=== PATIENT | female | born 1990 | race Caucasian/White ===

== ENCOUNTER → 2020-12-17 07:44 | Outpatient (CLI) | payer SELFPAY ==
[2020-12-17 08:07] LABS: Add Manual Diff / Slide Review NO; Basophils Absolute Auto 100 /uL (0-100); Basophils Percent Auto 0.8 % (0-2); Eosinophils Absolute Auto 100 /uL (0-450); Eosinophils Percent Auto 1.2 % (2-4); Hematocrit 38.9 % (36-46); Hemoglobin 13.2 g/dL (12.0-16.0); Lymphocytes Absolute Auto 3200 /uL (1100-4500); Lymphocytes Percent Auto 38.6 % (25-40); Mean Corpuscular HGB Conc 33.9 % (30-36); Mean Corpuscular Hemoglobin 31.6 PG (26-34); Monocytes Absolute Auto 700 /uL (0-900); Monocytes Percent Auto 8.6 % (3-14); Neutrophils Absolute Auto 4200 /uL (1500-7000); Neutrophils Percent Auto 50.8 % (50-75); Platelet Count 368 X10^3/uL (150-400); Red Blood Cell Count 4.18 X10^6/uL (4.0-5.2); Red Cell Distribution Width 12.7 % (11.6-14.8); White Blood Cell Count 8.3 X10^3/uL (4.5-11.0)
[2020-12-17 08:42] LABS: Appearance Urine UA CLEAR; Bilirubin Urine UA NEGATIVE (NEGATIVE); Color Urine UA YELLOW; Glucose Urine UA TRACE g/dL (Negative); Ketones Urine UA NEGATIVE (NEGATIVE); Leukocyte Esterase Urine UA 2+ (NEGATIVE); Nitrite Urine UA NEGATIVE (Negative); Occult Blood Urine UA 1+ (Negative); Protein Urine UA NEGATIVE (Negative); Urobilinogen Urine UA 0.2 E.U./dL (0.2)
[2020-12-17 09:10] LABS: Alanine Aminotransferase 23 IU/L (<35); Albumin Globulin Ratio 1.6 (1.0-2.8); Alkaline Phosphatase 41 U/L (38-126); Aspartate Aminotransferase 27 IU/L (14-36); BUN Creatinine Ratio 20.9 (6-22); Bilirubin Total 0.8 mg/dL (0.2-1.3); Blood Urea Nitrogen 14 mg/dL (7-17); Carbon Dioxide 29 mmol/L (22-32); Chloride 103 mmol/L (98-107); Cholesterol 120 mg/dL (140-199); Estimated Glomerular Filt Rate > 60.0 mL/min (>60); Globulin 2.5 g/dL (1.7-4.1); Glucose 89 mg/dL (70-100); HDL Cholesterol 68 mg/dL (40-60); HEMOLYSIS < 15 (0-50); LDL Cholesterol Calculated 25 mg/dL (<100); Potassium 4.6 mmol/L (3.4-5.1); Sodium 135 mmol/L (137-145); Total Protein 6.5 g/dL (6.3-8.2); Triglycerides 136 mg/dL (35-150)
[2020-12-17 09:15] LABS: pH Urine UA 6.5 (4.5-8.0)
[2020-12-17 09:36] LABS: TSH w/ Reflex to FT4 2.16 uIU/mL (0.47-4.68)
[2020-12-17 10:00] LABS: Bacteria Urine Many (>30); Culture Indicated Urine Specimen Cultured; RBC Urine 0-1/HPF (0-5/HPF); Squamous Epithelial Cell Urine 1-5 /HPF (0-5/HPF); WBC Urine 10-30/HPF (0-5/HPF)
== END ==
PROVIDERS: Family Provider Internal Medicine; PCP Registered Nurse; Referring Provider Registered Nurse; Visit Provider Registered Nurse
DX: F41.8 Other specified anxiety disorders (principal); Z30.41 Encounter for surveillance of contraceptive pills; Z00.00 Encounter for general adult medical examination without abnormal findings; Z82.49 Family history of ischemic heart disease and other diseases of the circulatory system
CPT/HCPCS: 36415; 80053; 80061; 81003; 81015; 84443; 85025; 87077; 87086

== ENCOUNTER → 2023-11-05 10:08 | Outpatient (CLI) | payer OTHER, SELFPAY ==
[2023-11-05 12:09] LABS: HCG Quantitative /Beta subunit 116.9 mIU/mL
== END ==
PROVIDERS: Family Provider Internal Medicine; PCP Registered Nurse Diabetes Educator; Referring Provider Obstetrics & Gynecology; Visit Provider Obstetrics & Gynecology
DX: N91.2 Amenorrhea, unspecified (principal)
CPT/HCPCS: 36415; 84702

== ENCOUNTER → 2023-11-07 08:25 | Outpatient (CLI) | payer OTHER, SELFPAY ==
[2023-11-07 09:48] LABS: HCG Quantitative /Beta subunit 254.7 mIU/mL
== END ==
PROVIDERS: Family Provider Internal Medicine; PCP Registered Nurse Diabetes Educator; Referring Provider Obstetrics & Gynecology; Visit Provider Obstetrics & Gynecology
DX: N91.2 Amenorrhea, unspecified (principal)
CPT/HCPCS: 36415; 84702

== ENCOUNTER → 2023-12-16 12:26 | Outpatient (CLI) | payer OTHER, SELFPAY ==
[2023-12-16 13:12] LABS: Add Manual Diff / Slide Review NO; Basophils Absolute Auto 100 /uL (0-100); Basophils Percent Auto 0.6 % (0-2); Eosinophils Absolute Auto 100 /uL (0-450); Eosinophils Percent Auto 0.7 % (2-4); Hematocrit 37.4 % (36-46); Hemoglobin 12.7 g/dL (12.0-16.0); Lymphocytes Absolute Auto 3600 /uL (1100-4500); Lymphocytes Percent Auto 29.5 % (25-40); Mean Corpuscular HGB Conc 33.9 % (30-36); Mean Corpuscular Hemoglobin 30.5 PG (26-34); Mean Corpuscular Volume 89.8 fL (80-100); Monocytes Absolute Auto 900 /uL (0-900); Neutrophils Absolute Auto 7600 /uL (1500-7000); Neutrophils Percent Auto 62.2 % (50-75); Platelet Count 399 X10^3/uL (150-400); Red Blood Cell Count 4.16 X10^6/uL (4.0-5.2); Red Cell Distribution Width 13.2 % (11.6-14.8); White Blood Cell Count 12.2 X10^3/uL (4.5-11.0)
[2023-12-17 07:34] LABS: RPR Screen Non Reactive (Non Reactive)
[2023-12-17 10:30] LABS: Varicella IgG Antibody 802 index (Immune >165)
[2023-12-17 16:40] LABS: Hepatitis B Surface Antigen NEGATIVE s/c (NEGATIVE); Rubella Antibody IgG 54.8 IU/mL (>15)
[2023-12-17 16:55] LABS: HIV 1 & 2 Ab/Ag 4th Gen Combo NEGATIVE (NEGATIVE); Hep C Virus Ab w/Reflex Quant NEGATIVE s/c (NEGATIVE)
== END ==
PROVIDERS: Family Provider Internal Medicine; PCP Registered Nurse Diabetes Educator; Referring Provider Obstetrics & Gynecology; Visit Provider Obstetrics & Gynecology
DX: Z34.00 Encounter for supervision of normal first pregnancy, unspecified trimester (principal)
CPT/HCPCS: 36415; 80055; 86787; 86803; 86850; 86900; 86901; 87086; 87389

== ENCOUNTER → 2023-12-22 11:55 | Outpatient (CLI) | payer OTHER, SELFPAY | PROVIDERS: Family Provider Internal Medicine; PCP Registered Nurse Diabetes Educator; Referring Provider Obstetrics & Gynecology; Visit Provider Obstetrics & Gynecology | DX: Z34.01 Encounter for supervision of normal first pregnancy, first trimester (principal) | CPT/HCPCS: 36415 ==

== ENCOUNTER → 2024-02-22 16:55 | Outpatient (CLI) | payer OTHER, SELFPAY ==
[2024-02-24 21:10] LABS: AFP Value 42.5 ng/mL (.); Gest Age on Col Date 19.1 weeks (.); Insulin Dep Diabetes No (.); OSBR Risk 1IN 10000 (.); Results Report (.); Test Results *Screen Negative* (.)
[2024-02-25 07:22] LABS: PDF SCANNED
== END ==
PROVIDERS: Family Provider Internal Medicine; PCP Registered Nurse Diabetes Educator; Referring Provider Obstetrics & Gynecology; Visit Provider Obstetrics & Gynecology
DX: Z34.02 Encounter for supervision of normal first pregnancy, second trimester (principal); Z3A.16 16 weeks gestation of pregnancy
CPT/HCPCS: 36415; 82105

== ENCOUNTER → 2024-03-01 15:21 | Outpatient (CLI) | payer OTHER, SELFPAY ==
--- NOTE | 2024-03-01 15:22 | DI.US.S_ITS ---
PROCEDURE: US OB >= 14 WEEKS FETUS INDICATIONS: 20 Week Anatomy Scan OUTSIDE/PRIOR DATING DATA: Last menstrual period (LMP): 10/06/2023. LMP-based estimated date of delivery (CORIN): 07/17/2024. First dating scan (date and location): 12/01/2023. Estimated date of delivery (CORIN) from first dating scan: 07/14/2024. The calculations are made using the clinical CORIN of 07/17/2024. TECHNIQUE: Real-time scanning was performed of the fetus, with image documentation and biometric measurements. Endovaginal scanning: Not performed. COMPARISON: [facility], , OB >= 14 WEEKS FETUS, 01/25/2024, 16:29. FINDINGS: General: A single living intrauterine gestation is present. Presentation: Vertex. Placenta: Placental position is posterior, without previa. Amniotic fluid index: 13.1 cm, normal range is 5-24 cm. Single deepest vertical pocket is 3.9 cm. heart rate: 143 beats per minute. Maternal cervical canal: 3 cm long. Normal lower limit is 2.5 cm. Closed. biometrics: Biparietal diameter: 5.1 cm, 21 weeks 3 days Head circumference: 18.6 cm, 20 weeks 6 days Abdominal circumference: 15.6 cm, 20 weeks 5 days Femur length: 3.2 cm, 19 weeks 6 days Clinically estimated gestational age: 20 weeks 2 days Composite gestational age from present scan: 20 weeks 5 days Estimated weight and percentile: 355 g, 55th percentile Anatomic survey: Neuro: Ventricles are non-dilated at less than 10 mm. Cisterna magna is normal at 3-11 mm. Cerebellum is normal in size and morphology. Nuchal skin fold: Normal at less than 6 mm between 14-21 weeks gestational age. Face: Nose and lips, facial profile are normal. Spine: No evidence for spina bifida. Heart: 4-chambered heart is present, with normal ventricular outflow tracts. Left ventricle intracardiac echogenic focus. Diaphragm: Diaphragm is intact. Stomach: Left-sided stomach is present. Kidneys: No hydronephrosis. Normal is less than 5 mm in 2nd trimester, less than 7 mm in 3rd trimester. Cord: 3-vessel cord has orthotopic insertion. Bladder: Normal in size. Extremities: All 4 extremities identified. IMPRESSION: 1. Webb living intrauterine at 20 weeks 5 days based on today's ultrasound. This is concordant with the prior dating. Fetus is in the 55th percentile for weight. 2. Normal placenta and amniotic fluid. 3. Left ventricle echogenic focus. Soft marker for aneuploidy. However, in the absence of other findings this is likely clinically insignificant. Consider screening for aneuploidy with cell free DNA. Otherwise normal anatomic survey. We strive to produce accurate, complete, and clear reports of imaging services. To assist us in improving patient care, this report was composed using standard report templates and voice recognition software. Therefore, it may contain abnormal punctuation, insertions and/or omissions. Occasional wrong-word or sound-alike substitutions may occur. Though we review the report and make efforts to correct it, we do recommend that the report be read carefully in proper context to recognize any text inaccuracies. Dictated by: Yobani Buckley M.D. on 03/02/2024 at 8:46 Approved by: Yobani Buckley M.D. on 03/02/2024 at 8:53
== END ==
LOC: US 15:22
PROVIDERS: Family Provider Internal Medicine; PCP Registered Nurse Diabetes Educator; Referring Provider Obstetrics & Gynecology; Visit Provider Obstetrics & Gynecology
DX: Z34.02 Encounter for supervision of normal first pregnancy, second trimester (principal); Z3A.20 20 weeks gestation of pregnancy
CPT/HCPCS: 76811

== ENCOUNTER → 2024-04-20 07:29 | Outpatient (CLI) | payer OTHER, SELFPAY ==
[2024-04-20 09:46] LABS: Hematocrit 35.6 % (36-46); Hemoglobin 11.9 g/dL (12.0-16.0)
[2024-04-20 10:15] LABS: GTT (PREG) 1 Hour PP 50gm Dose 104 mg/dL (76-139)
== END ==
PROVIDERS: Family Provider Internal Medicine; PCP Registered Nurse Diabetes Educator; Referring Provider Obstetrics & Gynecology; Visit Provider Obstetrics & Gynecology
DX: Z34.02 Encounter for supervision of normal first pregnancy, second trimester (principal); Z3A.27 27 weeks gestation of pregnancy
CPT/HCPCS: 82950; 85014; 85018

== ENCOUNTER → 2024-05-03 14:33 | Outpatient (CLI) | payer OTHER, SELFPAY ==
[2024-05-03 15:57] LABS: Add Manual Diff / Slide Review NO; Basophils Absolute Auto 0 /uL (0-100); Basophils Percent Auto 0.3 % (0-2); Eosinophils Absolute Auto 100 /uL (0-450); Eosinophils Percent Auto 0.9 % (2-4); Hematocrit 34.9 % (36-46); Hemoglobin 11.8 g/dL (12.0-16.0); Lymphocytes Absolute Auto 3300 /uL (1100-4500); Lymphocytes Percent Auto 20.4 % (25-40); Mean Corpuscular HGB Conc 33.9 % (30-36); Mean Corpuscular Volume 94.4 fL (80-100); Monocytes Absolute Auto 1700 /uL (0-900); Monocytes Percent Auto 10.3 % (3-14); Neutrophils Absolute Auto 11000 /uL (1500-7000); Neutrophils Percent Auto 68.1 % (50-75); Platelet Count 345 X10^3/uL (150-400); Red Blood Cell Count 3.69 X10^6/uL (4.0-5.2); Red Cell Distribution Width 13.1 % (11.6-14.8); White Blood Cell Count 16.1 X10^3/uL (4.5-11.0)
[2024-05-03 16:39] LABS: Alanine Aminotransferase 19 IU/L (<35); Albumin 3.3 g/dL (3.5-5.0); Albumin Globulin Ratio 1.4 (1.0-2.8); Alkaline Phosphatase 75 U/L (38-126); Aspartate Aminotransferase 26 IU/L (14-36); BUN Creatinine Ratio 23.4 (6-22); Bilirubin Total 0.3 mg/dL (0.2-1.3); Blood Urea Nitrogen 11 mg/dL (7-17); Calcium 8.6 mg/dL (8.4-10.2); Carbon Dioxide 24 mmol/L (22-32); Chloride 108 mmol/L (98-107); Estimated Glomerular Filt Rate > 60 mL/min (>60); Globulin 2.4 g/dL (1.7-4.1); Glucose 82 mg/dL (70-100); HEMOLYSIS < 15 (0-50); Potassium 3.9 mmol/L (3.4-5.1); Sodium 135 mmol/L (137-145); Total Protein 5.7 g/dL (6.3-8.2)
== END ==
PROVIDERS: Family Provider Internal Medicine; PCP Registered Nurse Diabetes Educator; Referring Provider Obstetrics & Gynecology; Visit Provider Obstetrics & Gynecology
DX: O12.00 Gestational edema, unspecified trimester (principal)
CPT/HCPCS: 36415; 80053; 85025

== ENCOUNTER 2024-05-12 15:36 | Emergency (ER) | payer OTHER, SELFPAY ==
[2024-05-12 15:43] VITALS: BP 131/66; PULSE 88; RESP 18; TEMP 37.1; O2SAT 97; BMI 27.7
--- NOTE | 2024-05-12 15:48 | DI.US.S_ITS ---
PROCEDURE: US PERIPH VENOUS LOW EXTREM RT INDICATIONS: right ankle swelling/leg pain, r/o DVT TECHNIQUE: Real-time imaging, as well as color and pulse Doppler interrogation, were performed of the lower extremity deep veins from the inguinal ligament to the popliteal fossa, with documentation of the visualized calf veins. COMPARISON: None. FINDINGS: The common femoral, femoral, popliteal, and the visualized calf veins are normally compressible, and free of intraluminal thrombus. Color and pulse Doppler demonstrate normal phasic intraluminal flow. There is normal augmentation response to distal compression maneuver. IMPRESSION: No findings of lower extremity deep venous thrombosis. Dictated by: Jose A Stevens M.D. on 05/12/2024 at 16:56 Approved by: Jose A Stevens M.D. on 05/12/2024 at 16:56
--- NOTE | 2024-05-12 20:14 | ED_ITS ---
HPI - Extremity Problem General Chief complaint: Extremity Problem,Nontraumatic Stated complaint: poss blood clot rt leg/dr ref Time Seen by Provider: 05/12/24 18:07 Source: patient Mode of arrival: Ambulatory Limitations: no limitations History of Present Illness HPI Narrative: Patient is a 30 week here for evaluation of swelling to her right lower extremity. Was reported that the patient noticed it last evening. Some pain around the knee. No trauma. No -related complaints such as abdominal pain, vaginal bleeding, loss of fluid. She was still feeling her baby move. No fevers. No chest pain. No shortness of breath. Was sent to the emergency department by primary provider for evaluation of the possible DVT. Related Data Home Medications Medication Instructions Recorded Confirmed vitamin-ferrous sulfate tab PO 11/11/23 05/03/24 27 mg iron-folic acid 0.8 mg tablet Previous Rx's Medication Instructions Recorded sertraline 50 mg tablet 50 mg PO DAILY #30 tabs 03/09/24 ondansetron 4 mg disintegrating 4 mg PO Q8H PRN nausea and 03/22/24 tablet vomiting #10 tabs Allergies Allergy/AdvReac Type Severity Reaction Status Date / Time No Known Drug Allergies Allergy Unverified 05/03/24 14:00 Review of Systems Review of Systems Narrative: See HPI Patient History Medical History Edema in preg-unspec Ocular migraine Irregular menstrual cycle Mild recurrent major depression Chicken pox (~1995) Abnormal Pap smear of cervix (~2018) Surgical History History of third molar tooth extraction (~2021) History of colposcopy Family History Mother History of heart attack Alcohol abuse Excessive caffeine intake Grandfather History of heart attack Grandfather Dementia Grandmother Lung cancer Heavy smoker Father Hyperlipidemia Brother Depression Anxiety Family/Other Tourette syndrome Social History marital status: number of children: 0 household members: spouse lives independently: Yes caregiver/support person: No housing: house pets and animals: Yes (dog) education level: college (some college) occupational status: employed (office job, 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) current occupational exposures/hazards: Yes (reviewed precautions) special lance needs: No travel history: recent (domestic only) seatbelt use: always water heater temp set < 120 deg: Yes working smoke detector in home: Yes fire extinguisher in home: No carbon monox detector in home: Yes firearms in home: Yes firearms unloaded and locked: No (agrees to get a safe in the next year) do you feel safe at home: Yes Smoking Status: Never smoker second hand exposure: No alcohol intake: former (quit May 2023) during the past year weight has: remained stable well-balanced diet: daily or most days daily servings fruits/ve-4 caffeine: Yes (AM 1-2 cups coffee) Type(s) of exercise: walking, weight lifting and resistance training frequency: daily duration: 30-45 minutes/day Smoking Status: Never smoker Substance Use Type: does not use Exam Initial Vital Signs Initial Vital Signs: Vital Signs Temperature 98.7 F 05/12/24 15:43 Pulse Rate 88 05/12/24 15:43 Respiratory Rate 18 05/12/24 15:43 Blood Pressure 131/66 05/12/24 15:43 Pulse Oximetry 97 05/12/24 15:43 Oxygen Delivery Method Room Air 05/12/24 15:43 Const General: cooperative and comfortable Resp Effort & Inspection: normal respiratory effort Cardio Rate: regular rate GI Other: Gravid abdomen Skin General: no rashes or lesions noted Extrem General: capillary refill normal, No cyanosis and No edema Course Orders Ordered: ED Orders 05/12/24 15:48 US periph venous low extrem rt Stat Vital Signs Vital signs: Vital Signs - 8 hr 05/12/24 20:33 Temperature 98.5 F Pulse Rate 62 Respiratory Rate 16 Blood Pressure 112/57 L Pulse Oximetry 98 Oxygen Delivery Method Room Air MDM - Extremity (Nontraumatic) Imaging Data US - DVT: Radiologist's Impression: PROCEDURE: US PERIPH VENOUS LOW EXTREM RT INDICATIONS: right ankle swelling/leg pain, r/o DVT TECHNIQUE: Real-time imaging, as well as color and pulse Doppler interrogation, were performed of the lower extremity deep veins from the inguinal ligament to the popliteal fossa, with documentation of the visualized calf veins. COMPARISON: None. FINDINGS: The common femoral, femoral, popliteal, and the visualized calf veins are normally compressible, and free of intraluminal thrombus. Color and pulse Doppler demonstrate normal phasic intraluminal flow. There is normal augmentation response to distal compression maneuver. IMPRESSION: No findings of lower extremity deep venous thrombosis. MDM Narrative Medical decision making narrative: Patient has very little if any swelling in lower extremities. Both lower extremities appear to be the same size. There was no signs of cellulitis. No trauma. No indication for x-rays. No DVT noted on the ultrasound. Will discharge patient home with instructions to continue with routine OB follow-up. Discharge Plan Departure Patient Disposition: Home Clinical Impression: Swelling of lower extremity Activity Restrictions/Additional Instructions: There was no blood clot noted on the ultrasound today. It appears that the swelling has not least improved if not resolved. Try to keep your legs elevated as much as possible. Keep all of your scheduled appointments. Return to the emergency department for new symptoms Prescriptions: No Action sertraline 50 mg tablet 50 mg PO DAILY Qty: 30 3RF vit-ferrous sulfat-FA 27 mg iron- 0.8 mg tablet PO ondansetron 4 mg tablet,disintegrating 4 mg PO Q8H PRN (Reason: nausea and vomiting) Qty: 10 0RF Referrals: Glen Lozano ARNP [Primary Care Provider] - Stand Alone Forms: Patient Portal/API
[2024-05-12 20:33] VITALS: BP 112/57; PULSE 62; RESP 16; TEMP 36.9; O2SAT 98
== END 2024-05-12 20:34 | disposition home or self-care (01) ==
PROVIDERS: Emergency Provider Emergency Medicine; Family Provider Internal Medicine; PCP Registered Nurse Diabetes Educator
DX: O12.03 Gestational edema, third trimester (principal); Z3A.30 30 weeks gestation of pregnancy
CPT/HCPCS: 93971; 99281; 99283

== ENCOUNTER → 2024-06-20 09:13 | Outpatient (CLI) | payer OTHER, SELFPAY ==
[2024-06-21 09:33] LABS: Strep Grp B PCR NEG for Grp B Strep
== END ==
PROVIDERS: Family Provider Internal Medicine; PCP Registered Nurse Diabetes Educator; Visit Provider Obstetrics & Gynecology
DX: Z34.90 Encounter for supervision of normal pregnancy, unspecified, unspecified trimester (principal); Z3A.36 36 weeks gestation of pregnancy
CPT/HCPCS: 87653

== ENCOUNTER 2024-07-02 09:15 | Inpatient (IN) | payer OTHER, SELFPAY ==
--- NOTE | 2024-07-02 10:19 | PM.OBHP.1 ---
OB HPI Date/Time Date of admission: 07/02/24 Date Patient Seen: 08/03/24 Time Patient Seen: 10:19 History of Present Condition Chief complaint: labor : 1 Estimated Date of Delivery: 07/17/24 Estimated Gestational Age (weeks): 37w6d Narrative: Paige Bermeo is a 33 year old female G1 at 37w6d by LMP c/w first trimester dating who presents to L&D for increasing frequency of contractions, questionable LOF. course overall uncomplicated with appropriate interval surveillance throughout. Pt last seen in office 06/27 and noted s/sx of prodrome at that time, SVE 3-4/50/-1. Pt notified provider yesterday and again this AM of increasing frequency of contractions but not yet in regular pattern. This AM she additionally reported questionable LOF and was requested to present to L&D for further evaluation. GBS neg Indications Other reason(s) for admission: Augmentation of advanced latent labor at term History of Present care: good care Dating criteria: LMP confirmed by 1st trimester US Ultrasounds: normal 1st trimester US and normal mid trimester US Obstetrical complications: none Medical complications: psychiatric (h/o maternal mood disorder (depression dominant), no exacerbation) Preadmission Labs Blood type: A (+) positive -: Antibody screen: negative, Cystic fibrosis screen: unknown, GBS status: negative, HBsAG: negative, HIV: negative, HSV 1: unknown, HSV 2: unknown and RPR/VDLR: negative -: Chlamydia screen: not detected and Gonorrhea screen: not detected -: Rubella: immune and Varicella: immune HCT: 34.9 HCAB: negative PAP: Normal Cell-free DNA: low-risk, XX Urine: neg culture 1 hr GTT: 104 Evaluation Evaluation Baseline heart rate: 130 Variability: Moderate (11-25) monitor accelerations: Present Monitor Decelerations: Absent Contraction Frequency (minutes): 7 Uterine Contraction Intensity: Moderate Category of Tracing: Reactive Status: Category l Dilation (cm): 5 Effacement (%): 70 Dilation: >/=5 cm Effacement: 60-70% station: -1 Position of cervix: mid Consistency: soft Hadley score: 10 Comments: palpable suture PFSH Medical History Edema in preg-unspec Ocular migraine Irregular menstrual cycle Mild recurrent major depression Chicken pox (~1995) Abnormal Pap smear of cervix (~2018) Surgical History History of third molar tooth extraction (~2021) History of colposcopy Family History Mother History of heart attack Alcohol abuse Excessive caffeine intake Grandfather History of heart attack Grandfather Dementia Grandmother Lung cancer Heavy smoker Father Hyperlipidemia Brother Depression Anxiety Family/Other Tourette syndrome Social History marital status: number of children: 0 household members: spouse lives independently: Yes caregiver/support person: No housing: house pets and animals: Yes (dog) education level: college (some college) occupational status: employed (office job, 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) current occupational exposures/hazards: Yes (reviewed precautions) special lance needs: No travel history: recent (domestic only) seatbelt use: always water heater temp set < 120 deg: Yes working smoke detector in home: Yes fire extinguisher in home: No carbon monox detector in home: Yes firearms in home: Yes firearms unloaded and locked: No (agrees to get a safe in the next year) do you feel safe at home: Yes Smoking Status: Never smoker second hand exposure: No alcohol intake: former (quit May 2023) during the past year weight has: remained stable well-balanced diet: daily or most days daily servings fruits/ve-4 caffeine: Yes (AM 1-2 cups coffee) Type(s) of exercise: walking, weight lifting and resistance training frequency: daily duration: 30-45 minutes/day Meds Home Medications and Allergies Home Medications Medication Instructions Recorded Confirmed Type vitamin-ferrous sulfate tab PO 11/11/23 06/27/24 History 27 mg iron-folic acid 0.8 mg tablet ondansetron 4 mg disintegrating 4 mg PO Q8H PRN nausea and 03/22/24 06/27/24 Rx tablet vomiting #10 tabs [id number] antigen-AS01E 120 mcg IM ONCE #1 kit 06/09/24 06/27/24 Rx adjuvant(PF) 120 mcg/0.5 mL IM suspension, kit sertraline 50 mg tablet 50 mg PO DAILY #30 tabs 06/14/24 06/27/24 Rx Allergies Allergy/AdvReac Type Severity Reaction Status Date / Time No Known Drug Allergies Allergy Unverified 06/27/24 10:18 Review of Systems Review of Systems ROS: Yes All systems reviewed with the patient and are negative except as otherwise documented OB Exam Vital signs Blood Pressure: 126/64 Pulse Rate: 65 Respiratory Rate: 18 Temperature: 36.5 F Narrative Exam Narrative: moderately uncomfortable with contractions, coping well HENMT Head: normal to inspection Eyes General: appearance normal, both eyes and all related structures Resp Effort & Inspection: normal respiratory effort Cardio Rate: regular rate Extremities Lower extremity: Yes edema (+1) Laterality: bilateral GI Inspection: normal to inspection Other: gravid, size c/w dates madeline cephalic 6.5-7# External Female Exam: Yes normal external appearance Estimated Weight (lbs): 7 Other: palpable forebag, bloody show noted on glove Assessment and Plan Assessment and Plan Assessment and Plan narrative: 33yo G1 at 37w6d D=1st trimester US presents to labor and delivery in advanced latent labor at term, amenable to provider recommendation for admission for expectant management with augmentation as indicated secondary to prolonged prodromal state Advanced latent labor SVE 3-4cm in office, 5-6cm on admission today with palpable bulging forebag/bloody show, irregular but increasingly frequent contractions maternal VSS/afebrile, Cat 1 tracing, GBS neg Patient and partner counseled on recommendation for admission for expectant management, planned augmentation of labor in zoroastrian contractions stall given advanced cervical dilation and increasing maternal discomfort Pt undecided regarding labor analgesia, previously anticipated epidural but coping better than she expected. Encouraged to notify staff of needs PRN ok for intermittent monitoring pending initiation pitocin gtt for augmentation if indicated PNL as per above h/o maternal mood disorder historical mild recurrent major depression stable throughout , cont home sertraline 50mg PO 1wk telehealth mood check Patient is consented for vaginal, vaginal operative and delivery as well as transfusion of blood products as medically indicated. Dispo: admit, anticipate Time-Based Coding :: 30 spent with patient and on the chart (including review of chart, obtaining history, exam, reviewing outside data, placing orders, documenting exam and treatment plan, and counseling patient) on [07/02/24].
[2024-07-02 11:13] VITALS: BP 126/64; PULSE 65; RESP 18; TEMP 2.5; TEMP 36.5
[2024-07-02 11:37] LABS: Add Manual Diff / Slide Review NO; Basophils Absolute Auto 100 /uL (0-100); Basophils Percent Auto 0.4 % (0-2); Eosinophils Absolute Auto 100 /uL (0-450); Eosinophils Percent Auto 0.4 % (2-4); Hematocrit 35.8 % (36-46); Hemoglobin 11.9 g/dL (12.0-16.0); Lymphocytes Absolute Auto 2900 /uL (1100-4500); Lymphocytes Percent Auto 23.2 % (25-40); Mean Corpuscular HGB Conc 33.3 % (30-36); Mean Corpuscular Hemoglobin 31.5 PG (26-34); Mean Corpuscular Volume 94.9 fL (80-100); Monocytes Absolute Auto 800 /uL (0-900); Monocytes Percent Auto 6.7 % (3-14); Neutrophils Absolute Auto 8600 /uL (1500-7000); Neutrophils Percent Auto 69.3 % (50-75); Platelet Count 308 X10^3/uL (150-400); Red Blood Cell Count 3.78 X10^6/uL (4.0-5.2); Red Cell Distribution Width 13.6 % (11.6-14.8); White Blood Cell Count 12.5 X10^3/uL (4.5-11.0)
[2024-07-02 11:47] VITALS: BP 126/64
--- NOTE | 2024-07-02 14:24 | P.PNOB_ITS ---
Date/Time Date Patient Seen: 07/02/24 Time Patient Seen: 14:24 Pain Control Pain control: tolerating well Comments: pt states increasing frequency of cramping, unable to nap due to discomfort, states she would not tolerate continued prodromal labor at home Pelvic Exam Dilation (cm): 5 Effacement (%): 90 station: -1 Amniotic membrane status: Bulging Comments: interval effacement without change in dilation Contractions Contractions on admission: irregular Monitor mode: Palpation Contraction pattern: Irregular Contraction intensity: Moderate Status status: Category l Heart Rate Baseline: 135 Monitor Accelerations: Present Monitor Decelerations: Absent Monitor Variability: Moderate Comments: reactive Assessment and Plan Plan: begin patient augmentation Comments: Interval effacement without change in dilation maternal VSS/afebrile, Cat 1 tracing patient and partner counseled on recommendation to proceed with pitocin augmentation versus discharge to home with strict precautions given continued pr odromal labor without change in cervical dilation patient desires to proceed with labor augmentation, start pitocin gtt per protocol and augment to pattern CEFM while on pitocin, ok for wireless monitoring plan for interval SVE in 4h, AROM at that time PRN anticipate SVE
[2024-07-02] MEDS: LACTATED RINGERS 1,000 ML 100 ML IV (14:40)
[2024-07-02] MEDS: OXYTOCIN PREMIX 30 UNIT/500 ML PLAST..BAG IV (14:54)
--- NOTE | 2024-07-02 21:36 | PM.AN.REGBLK ---
Regional Block Pre-procedure Procedure: Continuous Lumbar Epidural for L&D (with dural puncture) Attending OB provider: Jo Ansari PMH/ROS narrative: 33yo in labor requesting epidural. See pre-anesthesia evaluation for more details. ASA Class: II Labs: Hct 35.8 % (36-46) L 07/02/24 10:55 Plt Count 308 X10^3/uL (150-400) 07/02/24 10:55 Medications: Current Medications Generic Name Dose Route Start Last Admin Trade Name Freq PRN Reason Stop Dose Admin Carboprost Tromethamine 250 mcg 07/02/24 10:16 Carboprost 250 Mcg/Ml Ampul IM Q90M PRN Bleeding Diphenhydramine HCl 25 mg 07/02/24 21:34 Diphenhydramine 50 Mg/Ml Vial IV Q10M PRN Pruritis Ephedrine Sulfate 10 mg 07/02/24 21:34 Ephedrine 50 Mg/Ml Vial IV Q5M PRN Blood pressure decrease more than 20% of baseline. Oxytocin/Lactated Ringer's 30 unit in 500 mls @ 200 mls/hr 07/02/24 10:16 Oxytocin Premix IV CONT PRN Bleeding Protocol Tranexamic Acid 1,000 mg/ 100 mls @ 600 mls/hr 07/02/24 10:16 Sodium Chloride IV NOW PRN Bleeding Lactated Ringer's 1,000 mls @ 100 mls/hr 07/02/24 10:30 07/02/24 14:40 Lactated Ringers IV 100 mls/hr CONT ASHISH Administration Oxytocin/Lactated Ringer's 30 unit in 500 mls @ 2 mls/hr 07/02/24 14:24 07/02/24 14:54 Oxytocin Premix IV 2 milliunit/min TITRATE ASHISH 2 mls/hr Administration Protocol 2 MILLIUNIT/MIN FENT 2MCG/ML BUPIV 0.125% EPI 200 mcg in 100 mls @ 6 mls/hr 07/02/24 21:45 Fentanyl/Bupiv/Ns 2mcg/Ml - 0.125% EPIDURAL CONT ASHISH Lidocaine HCl 20 ml 07/02/24 10:16 Lidocaine 1% 20 Ml INJ INTRA-OP PRN Post Delivery Methylergonovine Maleate 0.2 mg 07/02/24 10:16 Methylergonovine 0.2 Mg Tablet PO Q6HR PRN Heavy Bleeding Methylergonovine Maleate 0.2 mg 07/02/24 10:16 Methylergonovine 0.2 Mg/Ml Vial IM NOW PRN Bleeding Misoprostol 800 mcg 07/02/24 10:16 Misoprostol 200 Mcg Tablet UT NOW PRN Bleeding Misoprostol 400 mcg 07/02/24 10:16 Misoprostol 200 Mcg Tablet SL NOW PRN Bleeding Nalbuphine HCl 2.5 mg 07/02/24 21:34 Nalbuphine 20 Mg/Ml Ampul IV Q10M PRN Pruritis Naloxone HCl 0.2 mg 07/02/24 10:16 Naloxone 0.4 Mg/Ml Vial IV Q2MIN PRN Opiate Reversal Oxytocin 10 unit 07/02/24 10:16 Oxytocin 10 Unit/Ml Vial IM NOW PRN Bleeding Allergies: Allergies Allergy/AdvReac Type Severity Reaction Status Date / Time No Known Drug Allergies Allergy Unverified 06/27/24 10:18 Procedure Insertion date: 07/02/24 Insertion time: 21:19 Prep/Local: 1% lidocaine (Chloraprep) Interspace: L3-4 Patient position: sitting Needle: 18 gauge Hustead (22g 5 Pencan for dural puncture) Loss of resistance with: saline YESENIA at (cm): 6 Catheter placed at SKIN (cm): 13 Catheter in SPACE (cm): 7 Insertion: No CSF, No Blood, No Paresthesia with insertion, No Paresthesia with injection and No Test dose reaction Initial Medications TEST DOSE time: 21:20 TEST DOSE: 1.5% lidocaine with epinephrine 1:200k (mL): 3 BOLUS DOSE time: 21:21 BOLUS DOSE (mL): 2 BOLUS DOSE med: other (Same as test dose) Infusion INFUSION: 0.125% bupivacaine and with fentanyl 2 mcg/mL Initial rate (mL/hr): 10 Subsequent interventions: Time out 21:13. Easy epidural placement on first attempt. Epidural pump started at 21:30. 22:50 - Called for bolus. RN reports pt grimacing with contractions. Pt reports more pressure than pain but is very stoic. Able to move BLE, R>L. Last check she was 7-8 cm dilated, +1. Pt does report pressure in my butt and feeling like she needs to have a bowel movement during contractions. Discussed with her that I didn't want to get her too numb to push, although as a primip she probably has more labor to go. I bolused with only 5 ml 2% lidocaine and will reassess in half an hour. KR 23:30 - Checked on pt after bolus. She states she is very comfortable, not feeling her contractions at all. Able to move BLE. No changes made. MAUREEN Post-procedure Anesthesia date START: 07/02/24 Anesthesia time START: 21:13 Anesthesia date END: 07/03/24 Anesthesia time END: 01:23 Post-procedure Anesthesia Assessment: Yes CV function: HR/BP stable, Yes Resp function: RR/sat/airway adequate, Yes Post-op hydration adequate, Yes Pain control adequate, Yes Nausea & vomiting absent, Yes Temperature > 36 C, Yes Mental status appropriate and No Anesthesia complications
--- NOTE | 2024-07-03 02:45 | PM.OBPRVD ---
Events: Other (routine PNC, prodromal labor since 37w0d) Labor & Delivery Delivery date: 07/03/24 Intrapartal Events: Prolonged Latent Phase Cervical ripening method: none Induction method: none Delivery augmentation: rupture of membranes and pitocin Delivery monitor: external FHT Route of delivery: Episiotomy description: Right Mediolateral L&D Laceration Description: Perineal - 2nd Degree Delivery repair: vicryl Estimated blood loss (mL): 250 Anesthesia Type: Epidural Complications: None Narrative: Patient notified provider of increased sensation of rectal pressure, SVE C/C/+2. Patient in dorsal lithotomy position and with successive maternal expulsive efforts slow steady descent of head to +4 station. At this time patient requested provider assistance with vacuum delivery secondary to maternal exhaustion. With next contraction kiwi applied to occiput and under 200mmHg pressure in tandem with maternal expulsive efforts an additional 1cm of descent was achieved followed by pop-off x1. Noted elongated perineal body and with verbal consent of patient a small 1cm R mediolateral episiotomy was made using perry scissors. With next contraction delivery of head in OA position with restitution to maternal left. Nuchal cord x1, loose and reduced. Anterior shoulder delivered with gentle downward traction after which posterior shoulder and remainder of body rapidly delivered. was vigorous at delivery with noted terminal meconium, placed on maternal abdomen. Delayed cord clamping x90s after which cord was clamped x2 and cut by FOB with 3VC noted. Cord blood sample obtained. Spontaneous delivery of placenta <5min thereafter, inspected and noted to be intact. Fundus palpated and firm. Perineal exam revealed 2nd degree laceration secondary to mediolateral episiotomy without extension. This was repaired using 2-0 vicryl in standard fashion. Hemostasis was noted to be excellent. Fundus again palpated and firm < umb. Baby 1: gender: Female Presentation: vertex Position: Left Occiput Anterior Placenta delivery description: Spontaneous Cord Vessel Description: 3 Vessels, Nuchal Cord, Loose and Reduced Plan for aftercare: Routine care
[2024-07-03] MEDS: WITCH HAZEL/GLYCERIN PADS 1 EACH TOP (04:16)
[2024-07-03] MEDS: DERMOPLAST SPRAY 20% 60 ML 1 SPRAY TOP (04:17)
[2024-07-03] MEDS: LANOLIN OINT 7 GM 1 APPLIC TOP (04:17)
[2024-07-03] MEDS: IBUPROFEN 600 MG TABLET PO ×2 (04:18→14:28)
[2024-07-03] MEDS: ACETAMINOPHEN 325 MG TABLET 650 MG PO ×2 (04:18→14:28)
--- NOTE | 2024-07-03 12:38 | PM.OBPN.1 ---
Subjective - OB Subjective Patient comments: no complaints [place] baby status: doing well and nursing well feeding status: exclusively breast feeding Date Patient Seen: 07/03/24 Time Patient Seen: 12:39 Interval history: PPD0 s/p VAVD with R mediolateral episiotomy; doing well Exam Vital Signs (past 8 hours): BP 114/71 HR 83 RR 17 Tc 98.4F Const General: cooperative, comfortable and No acute distress Nutritional Appearance: average body habitus Orientation: alert, awake and oriented x3 Limitations: mental status not altered HENMT Head: normal to inspection Eyes General: appearance normal, both eyes and all related structures Neck Neck: normal visual inspection Chest Breast inspection: normal inspection of the breasts Resp Effort & Inspection: normal respiratory effort Cardio Rate: regular rate Pulses: normal peripheral pulses GI Inspection: normal to inspection Other: fundus firm << umb, non-tender Other: deferred, pt denies pain with urination or bowel movements Back/Spine/Pelvis Back: normal to inspection Skin General: no rashes or lesions noted Neuro General: patient alert, patient awake and patient oriented x3 Extrem General: normal to inspection Psych Mental Status: mental status grossly normal Thought Content: normal Objective Labs 07/02/24 10:55 Assessment & Plan Plan day: 0 plan OB: routine care Comments: 33yo PPD0 s/p VAVD of LBFI, doing well routine care exclusively, consult PRN PNL as per admission, rubella immune continue home sertraline, reviewed anticipation of baby blues, one week telehealth mood check FeSO4 supplementation at discharge, mild anemia of noted on admission with delivery EBL 250cc readdress contraception prior to discharge, contemplating LARC Anticipate dc to home PPD1-2 pending clinical course and clearance per peds Time-Based Coding :: [20] spent with patient and on the chart (including review of chart, obtaining history, exam, reviewing outside data, placing orders, documenting exam and treatment plan, and counseling patient) on [07/03/24].
--- NOTE | 2024-07-04 08:58 | P.DS_ITS ---
History of Present Illness History of Present Illness Date Patient Seen: 07/04/24 Time Patient Seen: 08:58 Chief complaint: OB Narrative: PPD1 s/p VAVD with R mediolateral episiotomy; doing well Discharge Providers Provider Date of admission: 07/02/24 09:15 Discharge Date: 07/04/24 Primary care physician: JUNIE Herzog Consults: 07/02/24 10:16 Consult to Anesthesiology Urgent Comment: Consulting Provider: Anesthesiologist Reason for consultation: Epidural 07/04/24 01:48 Consult to [employer]man Routine Comment: Discharge provider: Jo Ansari MD Summary Hospital Course Discharge Diagnosis: s/p vacuum-assisted vaginal delivery of live born female infant, R mediolateral episiotomy without OASIS Hospital Course: Pt is a 33yo female who presented to facility 07/02/24 with increasing frequency of contractions. course notable for h/o maternal mood disorder (depression) stable on low-dose sertraline, +COVID without severe symptoms in late 3rd trimester. SVE at time of admission was 4-5cm with >50% effacement, irregular contractions and reassuring status. Patient and partner were counseled on discharge to home with expectant management versus admission with anticipated augmentation in the setting of advanced latent labor. Patient desired to proceed with labor augmentation and quickly entered into the active phase of labor with pitocin augmentation followed by AROM. Epidural analgesia. Second stage complicated by elongated perineal body/tight transverse perineal mm necessitating R mediolateral episiotomy as well as vacuum-assisted delivery (one pull/one pop-off -> delivery). course was uncomplicated. Patient was discharged to home on PPD1 meeting all discharge milestones, declined immediately contraception. Status at Discharge Cognitive/behavioral status at discharge: oriented Functional status at discharge: independent ambulation Overall status at discharge: patient is back to baseline Time Spent with Patient Time spent: Less than 30 minutes Exam Vital Signs (past 8 hours): BP 113/69 HR 56 RR 18 Tc 97.9F Const General: cooperative and healthy appearing Nutritional Appearance: average body habitus Orientation: alert, awake and oriented x3 Limitations: mental status not altered HENMT Head: normal to inspection Chest Chest: normal inspection of the chest Breast inspection: normal inspection of the breasts Resp Effort & Inspection: normal respiratory effort Cardio Pulses: normal peripheral pulses GI Other: fundus firm << umb, non-tender Other: deferred, pt denies dysuria Skin General: no rashes or lesions noted Neuro General: patient alert, patient awake and patient oriented x3 Extrem General: normal to inspection Psych Mental Status: mental status grossly normal Judgment: judgment good Objective Labs 07/02/24 10:55 [facility] Medical History Edema in preg-unspec Ocular migraine Irregular menstrual cycle Mild recurrent major depression Chicken pox (~1995) Abnormal Pap smear of cervix (~2018) Surgical History History of third molar tooth extraction (~2021) History of colposcopy Family History Mother History of heart attack Alcohol abuse Excessive caffeine intake Grandfather History of heart attack Grandfather Dementia Grandmother Lung cancer Heavy smoker Father Hyperlipidemia Brother Depression Anxiety Family/Other Tourette syndrome Social History marital status: number of children: 0 household members: spouse lives independently: Yes caregiver/support person: No housing: house pets and animals: Yes (dog) education level: college (some college) occupational status: employed (office job, 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) current occupational exposures/hazards: Yes (reviewed precautions) special lance needs: No travel history: recent (domestic only) seatbelt use: always water heater temp set < 120 deg: Yes working smoke detector in home: Yes fire extinguisher in home: No carbon monox detector in home: Yes firearms in home: Yes firearms unloaded and locked: No (agrees to get a safe in the next year) do you feel safe at home: Yes Smoking Status: Never smoker second hand exposure: No alcohol intake: former (quit May 2023) during the past year weight has: remained stable well-balanced diet: daily or most days daily servings fruits/ve-4 caffeine: Yes (AM 1-2 cups coffee) Type(s) of exercise: walking, weight lifting and resistance training frequency: daily duration: 30-45 minutes/day Discharge Assessment & Plan Assessment and Plan Assessment: 33yo PPD1 s/p VAVD of LBFI, R mediolateral episiotomy without OASIS Plan of Treatment: routine care, fully advanced with formula supplementation secondary to maternal concerns for supply, will see prior to discharge today h/o maternal mood disorder - reviewed increased risk of exacerbation, notify provider with concerns declines immediately contraception, counseled on recommendation for barrier protection with any intimacy due to risk of escape ovulation appropriate for dc per peds DC to home today, PPD1 Discharge Plan Discharge Plan Patient Disposition: Home Provider Discharge Comment: Nothing in the vagina for 4 weeks. No tampons, intercourse, douching, swimming in fresh water/pools/hot tubs. Tub baths are okay if the tub is cleaned well first. Discharge orders & Medications Prescriptions: New Dermoplast (with menthol) 20-0.5 % Aerosol 1 spray topical Q1HR PRN (Reason: perineal pain) Qty: 56 2RF Purelan Cream 1 applic topical PRN PRN (Reason: Tenderness) Qty: 7 3RF [employer] [place] 12.5-50 % Pads, Medicated 1 pad topical Q30M PRN (Reason: Itching) Qty: 40 0RF Continued sertraline 50 mg tablet 50 mg PO DAILY Qty: 30 3RF vit-ferrous sulfat-FA 27 mg iron- 0.8 mg tablet 1 tab PO Discontinued RSVPreF3 antigen-AS01E (PF) 120 mcg/0.5 mL suspension for reconstitution 120 mcg IM ONCE Qty: 1 0RF Patient Comments: Pt got it months ago Follow up/Referrals: Carolann López MD [Physician] - (6 week Appt w/ Dr. Ansari: @ 10:30am (please check in at 10:15am)) Diet/Activity/Treatments Diet: Regular Skin/Wound/Dressing Care Report to your healthcare provider any signs of infection, such as:: chills, fever, increased pain and unusual drainage Visit Report/Discharge Packet Stand Alone Forms: Discharge: Care, Patient Portal/API, Stroke Signs & Symptoms Discharge Data Primary Care Provider: Glen Lozano PROFEE Charge Codes Discharge inpatient/observation: [id number]
[2024-07-04 12:45] VITALS: BP 113/69; PULSE 56; RESP 18; TEMP 36.6
--- NOTE | 2024-07-04 13:25 | P.OP_ITS ---
Operative Date/Time/Diagnoses Date of procedure: 07/04/24 Time of procedure: 13:00 Pre-op diagnosis: incomplete SAB, failed medication management Post-op diagnosis: same Procedure & Clinicians Procedure: suction dilation and curettage Same procedure as scheduled: Yes Indications: incomplete SAB s/p failed medical management Surgeon: Jo Ansari Click Yes if Unassisted: Yes Anesthesia Type: General Operative Notes Findings: normal external female genitalia, vagina, cervix uterine contents consistent with products of conception Closure Type: not applicable Specimen(s): other (endometrial contents ) Estimated Blood Loss (mL): 10 Blood products transfused: none Procedure in detail: Pt was taken to the operating room, transferred to OR table and anesthesia was induced with placement of LMA.? Pt had her legs placed in Jared stirrups and e xam under anesthesia was performed.? The patient was prepped and draped in a sterile fashion.? A time out was performed.? The bladder was emptied via straight catheter in sterile fashion.? A sterile speculum was inserted into the vagina.? The cervix was visualized and grasped anteriorly using a single tooth tenaculum.? The uterus sounded to 10cm and the cervical os was serially dilated using King dilators to allow for adequate passage of suction catheter.? The 8mm curved suction curette was inserted into the uterus and the uterine contents were evacuated. Uterine contents were visually inspected and noted to be consistent with products of conception.? The uterus was sharply curetted until a gritty texture was noted throughout, followed by additional single pass with suction curette.? Hemostasis was noted.? The tenaculum was removed and hemostasis was noted at insertion sites following brief application of silver nitrate.? Speculum removed.? Hemostasis was again confirmed to be excellent.? The patient then had her legs taken out of stirrups.? The patient tolerated the procedure well and without difficulty.? The patient was awakened from anesthesia and taken to PACU in stable condition. Complications: none Post-operative Condition: stable Disposition: PACU Plan for aftercare: routine postoperative follow-up as scheduled
== END 2024-07-04 13:13 | disposition home or self-care (01) | DRG 807 ==
PROVIDERS: Admitting Provider Obstetrics & Gynecology; Family Provider Internal Medicine; PCP Registered Nurse Diabetes Educator; Referring Provider Obstetrics & Gynecology; Visit Provider Obstetrics & Gynecology
DX: O63.1 Prolonged second stage (of labor) (principal); Z37.0 Single live birth; Z3A.37 37 weeks gestation of pregnancy; O75.81 Maternal exhaustion complicating labor and delivery
CPT/HCPCS: 36415; 59050; 85025; 86850; 86900; 86901; G0379; J2590

== ENCOUNTER → 2025-10-17 07:01 | Outpatient (CLI) | payer BC, SELFPAY ==
[2025-10-17 07:26] LABS: Hematocrit 39.4 % (36-46); Hemoglobin 13.4 g/dL (12.0-16.0); Mean Corpuscular HGB Conc 34.1 % (30-36); Mean Corpuscular Hemoglobin 30.9 PG (26-34); Mean Corpuscular Volume 90.7 fL (80-100); Platelet Count 338 X10^3/uL (150-400)
[2025-10-17 07:43] LABS: Alanine Aminotransferase 16 IU/L (<35); Albumin 4.1 g/dL (3.5-5.0); Albumin Globulin Ratio 1.6 (1.0-2.8); Alkaline Phosphatase 47 U/L (38-126); Blood Urea Nitrogen 13 mg/dL (7-17); Calcium 9.0 mg/dL (8.4-10.2); Carbon Dioxide 27 mmol/L (22-32); Chloride 106 mmol/L (98-107); Cholesterol 123 mg/dL (140-199); Estimated Glomerular Filt Rate > 60 mL/min (>60); Globulin 2.6 g/dL (1.7-4.1); Glucose 92 mg/dL (70-99); HDL Cholesterol 60 mg/dL (40-60); HEMOLYSIS < 15 (0-50); Potassium 4.1 mmol/L (3.4-5.1); Sodium 138 mmol/L (137-145); Total Protein 6.7 g/dL (6.3-8.2); Triglycerides 60 mg/dL (35-150)
[2025-10-17 08:13] LABS: TSH w/ Reflex to FT4 1.29 uIU/mL (0.47-4.68)
== END ==
PROVIDERS: PCP Registered Nurse Diabetes Educator; Referring Provider Registered Nurse Diabetes Educator; Visit Provider Registered Nurse Diabetes Educator
DX: Z00.00 Encounter for general adult medical examination without abnormal findings (principal); F41.9 Anxiety disorder, unspecified; F41.8 Other specified anxiety disorders
CPT/HCPCS: 36415; 80053; 80061; 84443; 85027